=== PATIENT | male | born 1950 | race Hispanic/Latino ===

== ENCOUNTER → 2020-03-22 | Day surgery (SDC) | payer MEDICARE, OTHER ==
[2020-03-18 11:39] LABS: BASOPHILS % 0.8 % (0.0-1.0); EOSINOPHILS # (AUTO) 0.2 (0.0-0.4); EOSINOPHILS % 3.7 % (0.0-6.0); HEMATOCRIT 39.2 % (38.2-49.6); LYMPHOCYTES # (AUTO) 1.5 (1.0-3.2); LYMPHOCYTES % 30.8 % (18.0-39.1); MEAN CORPUSCULAR HGB CONC 33.2 g/dL (31-35); MEAN CORPUSCULAR VOLUME 93.3 fL (81-99); MONOCYTES # (AUTO) 0.5 (0.2-0.8); MONOCYTES % 10.8 % (4.4-11.3); NEUTROPHILS # (AUTO) 2.7 (2.1-6.9); NEUTROPHILS % 53.7 % (38.7-80.0); PLATELET COUNT 186 x10e3/uL (140-360); RED CELL DISTRIBUTION WIDTH 13.8 % (11.7-14.4)
[2020-03-18 12:04] LABS: ALANINE AMINOTRANSFERASE 21 IU/L (0-55); ALBUMIN 3.9 g/dL (3.5-5.0); ALKALINE PHOSPHATASE 59 IU/L (40-150); ANION GAP 12.4 mmol/L (8-16); BLOOD UREA NITROGEN 16 mg/dL (7-26); BUN/CREATININE RATIO 19 (6-25); CALCIUM 8.8 mg/dL (8.4-10.2); CARBON DIOXIDE 28 mmol/L (22-29); CHLORIDE 101 mmol/L (98-107); CREATININE, SERUM 0.83 mg/dL (0.72-1.25); EST GLOMERULAR FILTRATION RATE > 60 ML/MIN (60-); GLUCOSE 99 mg/dL (74-118); POTASSIUM 4.4 mmol/L (3.5-5.1); SODIUM 137 mmol/L (136-145)
[~2020-03-22] VITALS: Ht 170.2 cm; Wt 76.2 kg
[2020-03-22] VITALS (8 sets, daily range): BP systolic 106–142; BP diastolic 60–77
[~2020-03-22] MED LIST: ALPRAZOLAM 0.5 MG TAB ONE; DIPHENHYDRAMINE HCL 25 MG CAP ONE; FENTANYL CITRATE/PF 100MCG/2 ML INJ ONE; HEPARIN SOD/SOD CHLORIDE 2,000 ML ONE; IOPAMIDOL 370 MG/ML 200 ML INFUS..BTL INJ ONE; IRON 45 MG PO; LIDOCAINE HCL 2% LOCAL 20 ML VIAL ONE; MIDAZOLAM HCL 2 MG/2 ML VIAL ONE; SODIUM CHLORIDE 0.9% 1000ML 1,000 ML ONE; [UNRECOGNIZED DRUG - OTHER] PO
--- NOTE | 2020-03-22 13:00 | NUR ---
1300P pt in rM#10 , identifierx2,prepped for procedure. Alert oriented and appropriate, PERRLA, respirations even and unlabored to room air. Pulses x4 extremities equal and palpable . Cap fill brisk < 3 sec. + modified barbeau and neurovascular function of right wrist/hand. Right wrist and bilateral groin prepped for procedure. skin intact. Skin warm and dry integrity appears intact in general. IV started left hand sticks x2 SIMONA Hansen successful and presents healthy w/o s/s of infiltration or complaint. Abdomen soft and supple. pt offered toileting, denies need to urinate or defecate. Personal affects with patient. Family at bedside.Consent via interpretation line /Gladyes #[id number]. Pt verbalizes understanding of POC. Educated adoption worker light use. bed low and locked, side rails up x2 and call light at side. Preop medication Xanex 0.5 and Benadryl 50 po given.Awaiting for physician arrival/procedure time. pt using personal mask for COVID-19 mitigation. -bib/rn
--- NOTE | 2020-03-22 13:30 | NUR ---
1330 handoff to Tyrone Mondragon No active CP or SOB Ready for procedure Preops taken side arail up call light at bedside ,Bed in low position Instructed not to get up. Language line used for consent and medication reconciliation filled out with input bib/rn
--- NOTE | 2020-03-22 14:18 | NUR ---
1418p CCL Recovery phase initiated bed #10, bedside report received from Michele Urbano RN. Alert oriented and appropriate, PERRLA, respirations even and unlabored to room air. Pulses x4 extremities equal and strong. Right hand + neurovascular function Cap fill brisk < 3 sec. TR band present w/ reported 14ml to band. No s/s of hematoma or gross abnormality. Ok to decrease TR band at 1500pm No gross issues. Skin warm and dry integrity appears intact. IV {XX} to{XX} presents healthy w/o s/s of infiltration or complaint. Abdomen soft and supple. pt offered toileting, denies need to urinate or defecate. No personal affects with patient. Family at bedside. Pt understanding of POC. Bedside monitoring initiated. Currently w/o complaint of pain or need. Call light within reach, bed low and locked, side rails up x2. pt using personal mask for COVID-19 mitigation.
--- NOTE | 2020-03-22 14:58 | Operative Report ---
DATE OF PROCEDURE: 03/22/2020 SURGEON: Alpesh Liu MD INDICATIONS: Coronary artery disease, angina, and abnormal stress test. PROCEDURES PERFORMED: 1. Ultrasound-guided access in the right radial artery with sheath placement. 2. Conscious sedation, 35 minutes including administration, hemodynamic, and neurological monitoring and recovery by director of cath lab RN, supervision by MD. 3. Left heart catheterization, selective coronary angiography. 4. Deployment of right wrist TR band. COMPLICATIONS: None. BLOOD LOSS: Minimal. RECOMMENDATIONS: Medical therapy. DESCRIPTION OF PROCEDURE: Access was obtained in the right radial artery using ultrasound guidance. A 5-Japanese sheath was placed. Coronary angiography demonstrated calcified vessels, left anterior descending, circumflex, right coronary artery had diffuse moderate 30% to 50% calcified lesions. Apical LAD with 70% stenosis. This was a 1.5 mm vessel. No intervention was deemed necessary. LV end-diastolic pressure of 17. No gradient across the aortic valve on pullback. Right wrist TR band applied. The patient discharged home the same day. Alpesh Liu MD [facility] /[id number]
--- NOTE | 2020-03-22 15:00 | NUR ---
1500p RADIAL Compression removal: Initial Cuff volume 12 cc 1500p -2 cc Removed No hematoma/bleeding noted with normal neurovascular function. 1515p -5cc Removed No hematoma/ bleeding noted with normal neurovascular function. 1530p -5cc Removed No hematoma/bleeding noted with normal neurovascular function. Air removal completed. Stasis achieved sterile 2x2,Tegaderm, Coban dressing No hematoma, bleeding noted with normal neurovascular function. Pt instructed on POC. Ds/Rn
--- NOTE | 2020-03-22 16:00 | NUR ---
1600pm TRBAND Pt meets discharge criteria. VS wnl, alert and oriented. Pt and Family Understands discharge instruction. Overall general assess w/o gross outliers. Skin warm, dry, and intact. Right radial dressing soft w/o s/s of hematoma. + neurovascular function of right hand present. IV removed and appears distal tip is intact. Pt maintains mask on for COVID 19 precautions being taken by wheel chair to awaiting car. Transfers w/o gross distress with discharge paperwork in hand.-ds/rn
== END | disposition home or self-care (01) ==
LOC: CATH LAB 12:27
PROVIDERS: ATTEND Internal Medicine Interventional Cardiology
DX: I25.118 Atherosclerotic heart disease of native coronary artery with other forms of angina pectoris (principal); I49.8 Other specified cardiac arrhythmias; R94.31 Abnormal electrocardiogram [ECG] [EKG]; R94.39 Abnormal result of other cardiovascular function study; K21.9 Gastro-esophageal reflux disease without esophagitis; Z01.812 Encounter for preprocedural laboratory examination; Z20.828 Contact with and (suspected) exposure to other viral communicable diseases
CPT/HCPCS: 36415; 76937; 80053; 85025; 93458; C1769; C1887; J2001; J2250; J3010; J7030; Q9967; U0002; 99152

== ENCOUNTER 2023-06-07 05:17 | Observation (INO) | payer MEDICARE ==
[2023-06-04 11:04] LABS: BASOPHILS % 0.5 % (0.0-1.0); EOSINOPHILS # (AUTO) 0.3 (0.0-0.4); EOSINOPHILS % 6.4 % (0.0-6.0); HEMATOCRIT 40.4 % (38.2-49.6); HEMOGLOBIN 13.3 g/dL (14.0-18.0); LYMPHOCYTES # (AUTO) 1.6 (1.0-3.2); LYMPHOCYTES % 41.4 % (18.0-39.1); MEAN CORPUSCULAR HEMOGLOBIN 31.7 pg (28-32); MEAN CORPUSCULAR HGB CONC 32.9 g/dL (31-35); MEAN CORPUSCULAR VOLUME 96.4 fL (81-99); MONOCYTES # (AUTO) 0.4 (0.2-0.8); MONOCYTES % 10.8 % (4.4-11.3); NEUTROPHILS # (AUTO) 1.6 (2.1-6.9); NEUTROPHILS % 40.6 % (38.7-80.0); PLATELET COUNT 165 x10e3/uL (140-360); RED BLOOD COUNT 4.19 x10e6/uL (4.3-5.7); RED CELL DISTRIBUTION WIDTH 13.2 % (11.7-14.4); WHITE BLOOD COUNT 3.89 x10e3/uL (4.8-10.8)
[~2023-06-07 05:17] MED LIST changes: -ALPRAZOLAM 0.5 MG TAB ONE; +CALCIUM500 MG PO; -DIPHENHYDRAMINE HCL 25 MG CAP ONE; -FENTANYL CITRATE/PF 100MCG/2 ML INJ ONE; -HEPARIN SOD/SOD CHLORIDE 2,000 ML ONE; -IOPAMIDOL 370 MG/ML 200 ML INFUS..BTL INJ ONE; -LIDOCAINE HCL 2% LOCAL 20 ML VIAL ONE; -MIDAZOLAM HCL 2 MG/2 ML VIAL ONE; +MULTI-VITAMIN1 EACH PO; -SODIUM CHLORIDE 0.9% 1000ML 1,000 ML ONE; +TM-VITE RX T1000 MCG PO; +VIT D3 PO
[2023-06-07] MEDS ORDERED: SODIUM CHLORIDE 0.9% 500ML 500 ML ONE (06:14)
[2023-06-07] MEDS ORDERED: TRANEXAMIC ACID 20 ML ONE (06:14)
[2023-06-07] MEDS ORDERED: Vancomycin IV 1,000 MG ONE (06:14)
[2023-06-07] MEDS ORDERED: GABAPENTIN 300 MG CAP ONE (06:15)
[2023-06-07] MEDS ORDERED: CELECOXIB 200 MG CAP ONE (06:15)
[2023-06-07] MEDS ORDERED: DEXAMETHASONE SOD PHOS 10 MG/1 ML VIAL ONE (06:15)
[2023-06-07] MEDS ORDERED: LACTATED RINGER'S 1,000 ML ONE ×2 (06:16→09:23)
[2023-06-07] MEDS ORDERED: CEFAZOLIN SODIUM 2 GM ONE (06:16)
[2023-06-07] MEDS ORDERED: ACETAMINOPHEN 1000 MG/100 ML 100 ML IV ONE (07:08)
[2023-06-07] MEDS ORDERED: ROPIVACAINE 246.25 MG, EPINEPHRINE HCL 1:1000 1ML 0.5 MG, CLONIDINE HCL 0.08 MG, KETORO... INJ ONE ×5 (08:00)
[2023-06-07] MEDS ORDERED: SODIUM CHLORIDE 0.9% 1000ML 1,000 ML IV SCH (08:30)
[2023-06-07] MEDS ORDERED: ONDANSETRON HCL INJ 2MG/ML 2ML 2 MG/ML VIAL IV PRN (08:30)
[2023-06-07] MEDS ORDERED: DOCUSATE SODIUM 100 MG CAP PO PRN (08:30)
[2023-06-07] MEDS ORDERED: HYDROCODONE/APAP 5MG-325MG TAB PO PRN (08:30)
[2023-06-07] MEDS ORDERED: HYDROCODONE/APAP 7.5MG-325MG 1 EA TAB PO PRN (08:30)
[2023-06-07] MEDS ORDERED: ACETAMINOPHEN 650 MG SUPP PR PRN (08:30)
[2023-06-07] MEDS ORDERED: ASPIRIN 325 MG TAB PO SCH (09:00)
[2023-06-07] MEDS ORDERED: CELECOXIB 100 MG CAP PO SCH (09:00)
[2023-06-07] MEDS ORDERED: FENTANYL CITRATE/PF 100MCG/2 ML INJ IV ONE ×2 (09:38→10:10)
[2023-06-07 11:20] VITALS: BP 131/79; PULSE 69; RESP 16; O2SAT 99
[2023-06-07] MEDS ORDERED: ASPIRIN81 MG PO (12:15)
[2023-06-08] MEDS ORDERED: ACETAMINOPHEN 1000 MG/100 ML IV PRN (08:30)
== END 2023-06-07 11:45 | disposition home health service (06) ==
LOC: OR 05:17 → PACU V 08:29
PROVIDERS: ADMIT Specialist; ATTEND Specialist
DX: M17.11 Unilateral primary osteoarthritis, right knee (principal); M87.851 Other osteonecrosis, right femur; I25.10 Atherosclerotic heart disease of native coronary artery without angina pectoris; E78.2 Mixed hyperlipidemia; I44.0 Atrioventricular block, first degree; R00.1 Bradycardia, unspecified; K21.9 Gastro-esophageal reflux disease without esophagitis; E66.3 Overweight; Z68.25 Body mass index [BMI] 25.0-25.9, adult; Z01.812 Encounter for preprocedural laboratory examination; Z01.818 Encounter for other preprocedural examination; Z01.810 Encounter for preprocedural cardiovascular examination; Z79.899 Other long term (current) drug therapy; Z79.82 Long term (current) use of aspirin
CPT/HCPCS: 27447; 36415; 71046; 73560; 85025; 86850; 86900; 93005; 97116; 97161; C1713 ×2; C1776 ×4; G0378; J0131; J0171; J1100; J1885; J2795; J3010; J3370; J7040; J7121

== ENCOUNTER 2023-09-02 08:00 | Outpatient (RCR) | payer MEDICARE ==
[~2023-09-02 08:00] MED LIST changes: +ASPIRIN81 MG PO
== END 2023-09-07 ==
LOC: PT 08:00
PROVIDERS: ATTEND Physician Assistant
DX: Z47.1 Aftercare following joint replacement surgery (principal); Z96.651 Presence of right artificial knee joint